=== PATIENT | female | born 1965 ===

== ENCOUNTER 2023-01-01 20:38 | Inpatient (IN) | payer OTHER ==
[2023-01-01] MEDS ORDERED: SODIUM CHLORIDE 1,000 ML IV ONE ×2 (21:01→21:02)
[2023-01-01] MEDS ORDERED: INSULIN REGULAR HUMAN 100 UNITS/ML *VIAL IVPUSH ONE (21:02)
[2023-01-01 21:23] LABS: HEMATOCRIT 50.5 % (32.4-45.2); HEMOGLOBIN 17.1 G/dL (10.7-15.3); MCH 30.6 pg (25.7-33.7); MCHC 33.9 g/dl (32.0-36.0); MEAN CELL VOLUME 90.2 fl (80-96); MEAN PLT VOLUME 8.7 fl (7.5-11.1); PLATELET COUNT 263.3 10^3/uL (134-434); RDW 13.7 % (11.6-15.6); WHITE BLOOD COUNT 10.8 10^3/uL (4.0-10.8)
[2023-01-01 21:37] LABS: EPITHELIAL CELLS FEW /hpf
[2023-01-01 22:18] LABS: CHLORIDE 100 mmol/L (98-107); POTASSIUM 3.9 mmol/L (3.5-5.1); SODIUM 136 mmol/L (136-145)
[2023-01-01 22:20] LABS: CALCIUM 9.3 mg/dL (8.5-10.1)
[2023-01-01 22:21] LABS: ANION GAP 13 mmol/L (4-13); BLOOD UREA NITROGEN 18.8 mg/dL (7-18); CO2 23 mmol/L (21-32); MAGNESIUM 2.2 mg/dL (1.8-2.4)
[2023-01-01 22:24] LABS: CREATININE 1.1 mg/dL (0.55-1.3); PHOSPHOROUS 3.5 mg/dL (2.5-4.9); SGOT/AST 29 U/L (15-37); SGPT/ALT 106 U/L (13-61)
[2023-01-01 22:26] LABS: BILIRUBIN,TOTAL 0.8 mg/dL (0.2-1)
[2023-01-01 22:27] LABS: ALK PHOS 180 U/L (45-117)
[2023-01-01] MEDS ORDERED: CEFTRIAXONE 1 GM in DEXTROSE 5%-WATER - 50 ML IVPB ONE (22:40)
[2023-01-01] MEDS ORDERED: cefTRIAXone SODIUM 1 GM VIAL ONE (22:53)
[2023-01-01 23:01] LABS: GLUCOSE,RANDOM 553 mg/dL (74-106)
[2023-01-02] MEDS ORDERED: DOCUSATE SODIUM 100 MG CAPSULE (FP) PO PRN (00:04)
[2023-01-02] MEDS ORDERED: ACETAMINOPHEN 1000 MG/100 ML BAG IVPB PRN (00:09)
[2023-01-02] MEDS ORDERED: LACTATED RINGERS SOLUTION 1,000 ML/1,000 ML INFUS.BAG IV SCH (01:30)
[2023-01-02] MEDS ORDERED: INSULIN SLIDING SCALE (NOVOLOG) 1 VIAL SQ ONE ×2 (01:31→06:48)
[2023-01-02] MEDS: INSULIN SLIDING SCALE (NOVOLOG) 1 VIAL SQ SCH ×6 (02:24→21:24)
[2023-01-02 04:05] VITALS: BMI 27.4
[2023-01-02] MEDS ORDERED: SODIUM CHLORIDE 0.45% 1,000 ML IV SCH (04:45)
[2023-01-02 05:31] LABS: POTASSIUM 3.7 mmol/L (3.5-5.1)
[2023-01-02 05:32] LABS: BLOOD UREA NITROGEN 13.6 mg/dL (7-18)
[2023-01-02 05:36] LABS: CREATININE 0.8 mg/dL (0.55-1.3)
[2023-01-02] MEDS ORDERED: INSULIN (LEVEMIR) 100 UNITS/ML UNITS SQ ONE (06:12)
[2023-01-02 06:43] LABS: CALCIUM 7.6 mg/dL (8.5-10.1)
[2023-01-02] MEDS: SODIUM CHLORIDE 0.45% 1,000 ML IV SCH (06:50)
[2023-01-02 08:23] LABS: INR 1.13 (0.83-1.09); PROTHROMBIN TIME (PATIENT) 13.1 SEC (9.7-13.0)
[2023-01-02 08:26] LABS: ACTIVATED PTT 25.1 SECONDS (25.2-36.5)
[2023-01-02 09:31] LABS: BASO % 0.4 % (0-2.0); EOS % 1.2 % (0-4.5); HEMATOCRIT 41.3 % (32.4-45.2); HEMOGLOBIN 14.5 GM/dL (10.7-15.3); LYMPH % 25.5 % (8-40); MCH 30.9 pg (25.7-33.7); MCHC 35.2 g/dl (32.0-36.0); MEAN CELL VOLUME 87.8 fl (80-96); MEAN PLT VOLUME 8.9 fl (7.5-11.1); MONO % 7.2 % (3.8-10.2); NEUT % 65.7 % (42.8-82.8); PLATELET COUNT 230 10^3/uL (134-434); RDW 12.8 % (11.6-15.6); WHITE BLOOD COUNT 8.4 K/mm3 (4.0-10.0)
[2023-01-02 09:32] LABS: POTASSIUM 3.7 mmol/L (3.5-5.1)
[2023-01-02 09:52] LABS: BLOOD UREA NITROGEN 10.9 mg/dL (7-18); CALCIUM 7.7 mg/dL (8.5-10.1)
[2023-01-02 09:55] LABS: CREATININE 0.7 mg/dL (0.55-1.3)
[2023-01-02] MEDS: ENOXAPARIN NA (PORCINE) 40 MG/0.4 ML DISP.SYRIN SQ SCH (10:09)
[2023-01-02] MEDS: INSULIN (NOVOLOG) ASPART 100 UNITS/ML 10ML VIAL SQ SCH ×2 (13:35→16:39)
[2023-01-02] MEDS: CALCIUM (OYSTER SHELL) 500 MG TABLET (FP) PO SCH (13:36)
[2023-01-02] MEDS ORDERED: POTASSIUM CHLORIDE TABS 10 MEQ TABLET.ER (FP) PO ONE (14:00)
[2023-01-02] MEDS ORDERED: CEFTRIAXONE 1 GM in SODIUM CHLORIDE 50 ML IVPB SCH (21:00)
[2023-01-02] MEDS ORDERED: INSULIN (LEVEMIR) 100 UNITS/ML UNITS SQ SCH ×3 (22:00)
[2023-01-03] MEDS ORDERED: ACETAMINOPHEN 325 MG TABLET (FP) PO PRN (00:04)
[2023-01-03 02:07] VITALS: RESP 18
[2023-01-03] MEDS: INSULIN SLIDING SCALE (NOVOLOG) 1 VIAL SQ SCH ×2 (06:16→11:28)
[2023-01-03] MEDS: INSULIN (NOVOLOG) ASPART 100 UNITS/ML 10ML VIAL SQ SCH ×2 (06:17→11:28)
[2023-01-03] MEDS ORDERED: INSULIN (LEVEMIR) 100 UNITS/ML UNITS SQ SCH (07:00)
[2023-01-03 09:08] LABS: POTASSIUM 3.3 mmol/L (3.5-5.1)
[2023-01-03 09:10] LABS: CALCIUM 7.8 mg/dL (8.5-10.1)
[2023-01-03 09:11] LABS: BLOOD UREA NITROGEN 8.6 mg/dL (7-18)
[2023-01-03 09:14] LABS: CREATININE 0.7 mg/dL (0.55-1.3)
[2023-01-03] MEDS: SODIUM CHLORIDE 0.45% 1,000 ML IV SCH (09:22)
[2023-01-03] MEDS: CALCIUM (OYSTER SHELL) 500 MG TABLET (FP) PO SCH (09:23)
[2023-01-03] MEDS: ENOXAPARIN NA (PORCINE) 40 MG/0.4 ML DISP.SYRIN SQ SCH (09:23)
[2023-01-03] MEDS ORDERED: POTASSIUM CHLORIDE TABS 20 MEQ TABLET.ER (FP) PO ONE (13:09)
[2023-01-03 14:35] VITALS: BP 119/74; PULSE 74; TEMP 99.5
== END 2023-01-03 15:14 | disposition home or self-care (01) | DRG 420 ==
LOC: FER 20:38 → FM/S 23:40 → OBSVTOIN 01-03 10:43
PROVIDERS: ADMIT Internal Medicine; ATTEND Nurse Practitioner Family
DX: E11.01 Type 2 diabetes mellitus with hyperosmolarity with coma (principal); E83.51 Hypocalcemia; E11.65 Type 2 diabetes mellitus with hyperglycemia; N39.0 Urinary tract infection, site not specified; R63.1 Polydipsia
CPT/HCPCS: 36415; 71045-TC-FY; 80048; 80053; 80061; 81003; 81015; 82010; 82150; 82550; 82553; 82962; 83036; 83690; 83735; 83930; 84100; 84484; 85025; 85027; 85610; 85730; 93005; 99285-25; G0378